=== PATIENT | male | born 1980 | race Two or more races ===

== ENCOUNTER → 2019-02-08 | Emergency (ER) | payer BC ==
[~2019-02-08] VITALS: Ht 177.8 cm; Wt 70.3 kg
[~2019-02-08] MED LIST: CEFADROXIL500 MG PO
== END | disposition left against medical advice (07) ==
LOC: ER 13:28
DX: R07.1 Chest pain on breathing (principal); R11.11 Vomiting without nausea; T75.1XXA Unspecified effects of drowning and nonfatal submersion, initial encounter; W73.XXXA Other specified cause of accidental non-transport drowning and submersion, initial encounter; Y93.89 Activity, other specified; Y92.832 Beach as the place of occurrence of the external cause; Y99.8 Other external cause status

== ENCOUNTER 2020-06-20 16:07 | Outpatient (CLI) | payer OTHER | END 2020-06-20 16:20 | disposition home or self-care (01) | LOC: RAD 16:07 | PROVIDERS: ATTEND General Practice | DX: M25.571 Pain in right ankle and joints of right foot (principal) ==